=== PATIENT | female | born 1995 | race Caucasian/White ===

== ENCOUNTER 2018-02-28 04:01 | Emergency (ER) | payer OTHER ==
[2018-02-28] MEDS ORDERED: Morphine VIAL* 10 MG/ML 1 ML VIAL IM ONE (05:59)
[2018-02-28] MEDS ORDERED: Morphine VIAL* 4 MG/ML VIAL (1 ml vial) IV ONE ×2 (06:06→06:10)
[2018-02-28 08:24] VITALS: BP 112/72
--- NOTE | 2018-02-28 08:50 | RAD ---
Indication: Patellar dislocation. 2 views of the left knee demonstrates reduction of previously identified lateral dislocation of the patella. IMPRESSION: Reduction of previously identified lateral dislocation of the patella.
--- NOTE | 2018-02-28 09:08 | RAD ---
Indication: Left knee injury. 2 views of left knee demonstrates lateral subluxation of the patella. The tibia and fibula are unremarkable. IMPRESSION: Lateral subluxation of the patella.
--- NOTE | 2018-03-01 00:12 | ED ---
Dianne Sorenson Nilda, scribed for Dominique Brown MD on 02/28/18 at 0415 . Lower Extremity - HPI Summary HPI Summary: This patient is a 22 year old F BIBA accompanied by EMS with a chief complaint of constant left knee pain s/p dislocated left patella when friend accidentally sat on knee earlier this morning. The patient rates the pain 4/10 in severity. Symptoms aggravated by palpation and movement and alleviated by nothing. Patient denies fall and hearing a pop. Pt states previous similar episode that resolved spontaneously after a few seconds. NKDA. - History of Current Complaint Chief Complaint: EDExtremityLower Stated Complaint: LT KNEE INJURY Hx Obtained From: Patient Mechanism Of Injury: Other - dislocated left knee s/p friend accidentally sitting on it while she was lying in bed. Onset of Pain: Immediate Onset/Duration: Still Present Severity Currently: Moderate Pain Intensity: 4 Pain Scale Used: 0-10 Numeric Timing: Constant Location: Is Discrete @ - left patella Associated Signs And Symptoms: Positive: Knee Pain Aggravating Factor(s): Movement, Other - palpation Alleviating Factor(s): Nothing - Allergies/Home Medications Allergies/Adverse Reactions: Allergies Allergy/AdvReac Type Severity Reaction Status Date / Time No Known Allergies Allergy Verified 09/21/16 23:52 Home Medications: Home Medications NK [No Home Medications Reported] 02/28/18 [History Confirmed 02/28/18] PMH/Surg Hx/FS Hx/Imm Hx Sensory History: Denies: Hx Legally Blind EENT History: Denies: Hx Deafness Infectious Disease History: Denies: Traveled Outside the [place] in Last 30 Days - Family History Known Family History: Negative: Cardiac Disease, Hypertension - Social History Occupation: Student Alcohol Use: Weekly Substance Use Type: Reports: None Smoking Status (MU): Never Smoked Tobacco Review of Systems Negative: Shortness Of Breath Positive: Other - left knee pain s/p dislocation of patella All Other Systems Reviewed And Are Negative: Yes Physical Exam Triage Information Reviewed: Yes Vital Signs On Initial Exam: Initial Vitals Temp Pulse Resp BP Pulse Ox 37.1 C 102 16 106/77 96 02/28/18 04:08 02/28/18 04:08 02/28/18 04:08 02/28/18 04:08 02/28/18 04:08 Vital Signs Reviewed: Yes Appearance: Positive: Well-Appearing Skin: Positive: Warm Head/Face: Positive: Normal Head/Face Inspection Eyes: Positive: Normal, EOMI ENT: Positive: Normal ENT inspection, Hearing grossly normal Respiratory/Lung Sounds: Positive: Clear to Auscultation, Breath Sounds Present Cardiovascular: Positive: Normal, RRR, Pulses are Symmetrical in both Upper and Lower Extremities Abdomen Description: Positive: Nontender, No Organomegaly, Soft Musculoskeletal: Positive: Other - Obvious displacement of the left patella laterally, distal pulse intact, sensation intact Neurological: Positive: Normal, Sensory/Motor Intact Psychiatric: Positive: Normal Procedures - Joint Reduction Joint Reduction Site: patella (L) Conscious Sedation: No Reduction Attempts: 1 Pre-Procedure NV Exam: Yes Post Joint Reduction Film: joint reduced Diagnostics - Vital Signs Vital Signs Temp Pulse Resp BP Pulse Ox 02/28/18 06:41 91 100/63 100 02/28/18 06:11 85 16 105/70 98 02/28/18 06:00 90 96 02/28/18 05:41 88 106/69 96 02/28/18 05:11 92 110/66 96 02/28/18 05:00 97 96 02/28/18 04:41 88 109/70 95 02/28/18 04:39 86 111/75 98 02/28/18 04:19 96 97 02/28/18 04:11 99 106/77 95 02/28/18 04:08 37.1 C 102 16 106/77 96 - Laboratory Lab Statement: Any lab studies that have been ordered have been reviewed, and results considered in the medical decision making process. - Radiology Left patella XR Radiology Interpretation Completed By: ED Physician - Patella displaced laterally. Post reduction XR Radiology Interpretation Completed By: ED Physician - post reduction successful. Lower Extremity Course/Dx - Course Course Of Treatment: 22 year old female who presents of left patella displacement. Patient was given a shot of IM morphine with successful reduction of the patella without complications. Patient knee was then immobilized in a knee brace. Patient HD stable upon discharge. Return precautions given - Diagnoses Provider Diagnoses: Dislocation of left patella Discharge - Sign-Out/Discharge Documenting (check all that apply): Discharge - home - Discharge Plan Condition: Stable Disposition: HOME Patient Education Materials: Patellar Dislocation (ED) Referrals: Joseph Lee MD [Medical Doctor] - 2 Days Christoph Villalba MD [Primary Care Provider] - Additional Instructions: RETURN TO THE EMERGENCY DEPARTMENT FOR CHANGING OR WORSENING SYMPTOMS. - Billing Disposition and Condition Condition: STABLE Disposition: HOME The documentation as recorded by the Dianne carranza Nilda accurately reflects the service I personally performed and the decisions made by me, Dominique Brown MD.
== END 2018-02-28 08:14 | disposition home or self-care (01) ==
LOC: ED 04:01
DX: S83.005A Unspecified dislocation of left patella, initial encounter (principal); X58.XXXA Exposure to other specified factors, initial encounter; Y93.89 Activity, other specified; Y92.003 Bedroom of unspecified non-institutional (private) residence as the place of occurrence of the external cause
CPT/HCPCS: 27560; 96374; 99283; J2270